=== PATIENT | male | born 1970 | race Caucasian/White ===

== ENCOUNTER 2024-11-20 15:05 | Emergency (ER) | payer OTHER | END 2024-11-20 15:53 | disposition home or self-care (01) | LOC: CC.ED 15:05 | DX: S20.212A Contusion of left front wall of thorax, initial encounter (principal); I10 Essential (primary) hypertension; E11.9 Type 2 diabetes mellitus without complications; Z90.49 Acquired absence of other specified parts of digestive tract; Z88.1 Allergy status to other antibiotic agents; Z88.5 Allergy status to narcotic agent; Z79.84 Long term (current) use of oral hypoglycemic drugs; W00.0XXA Fall on same level due to ice and snow, initial encounter | CPT/HCPCS: 71101-LT; 99283 ==